=== PATIENT | female | born 1985 | race Caucasian/White ===

== ENCOUNTER 2018-12-07 14:44 | Emergency (ER) | payer OTHER ==
[~2018-12-07] VITALS: Ht 175.2 cm; Wt 86.2 kg
[~2018-12-07 14:44] MED LIST: AUGMENTIN 875875 MG PO; BACTRIM DS 8001 TA1 PO; BENADRYL25 MG PO; BUSPIRONE10 MG PO; CIPROFLOXACIN500 MG PO; CLARITIN10 MG PO; DARVOCET N 1001 TAB PO; HYDROXYZINE PAM50 MG PO; LEXAPRO20 MG PO; MOTRIN800 MG PO; MUCINEX DM 60 M1 TER PO; NKHM; PROVENTIL0.09 MG/A1 INH; PYRIDIUM100 MG PO; SEPTRA DS 800 M1 TAB PO; SEROQUEL25 MG PO; VISTARIL25 MG PO; ZANTAC 150150 MG PO; ZYRTEC10 M2 PO
[2018-12-07] MEDS ORDERED: ZITHROMAX250 MG PO (16:26)
== END 2018-12-07 16:49 | disposition home or self-care (01) ==
LOC: ED 14:44
DX: J02.8 Acute pharyngitis due to other specified organisms (principal); R59.0 Localized enlarged lymph nodes; Z88.5 Allergy status to narcotic agent; Z88.1 Allergy status to other antibiotic agents; Z79.899 Other long term (current) drug therapy; Z90.49 Acquired absence of other specified parts of digestive tract

== ENCOUNTER 2019-01-18 21:35 | Emergency (ER) | payer OTHER ==
[~2019-01-18] VITALS: Ht 175.2 cm; Wt 81.6 kg
--- NOTE | ~2019-01-18 | EKG ---
[place], [place] ELECTROCARDIOGRAM REPORT NAME: GEE MUÑOZ UNIT #: [id number] ROOM: DOCTOR: EPIPHANY DRAFT REPORT BIRTHDATE: [birth year] [facility] Test Date: 2019-01-18 Test Time: 22:21:50 Pat Name: GEE MUÑOZ Department: ER Room: 12 Gender: F Marriage Counselor: Taylor Ford : 1985 Requested By: PHILLIP LYLES PA-C Order Number: [id number] Reading MD: Ceasar Bass MD Measurements Intervals [place] Rate: 81 P: 58 LA: 142 QRS: 25 QRSD: 96 T: 35 QT: 362 QTc: 421 Interpretive Statements Sinus rhythm Probable left atrial enlargement RSR' in V1 or V2, right VCD or RVH Electronically Signed On 01-22-2019 8:39:20 PDT by Ceasar Bass MD CM:EKGRPT:ELECTROCARDIOGRAM REPORT [id number] PHILLIP LYLES PA-C EPIPHANY DRAFT REPORT PHILLIP LYLES PA-C
[~2019-01-18 21:35] MED LIST changes: +ZITHROMAX250 MG PO
[2019-01-18 22:24] LABS: URINE AMPHETAMINES < 1000 (1000ng/ml); URINE BARBITURATES < 200 (200ng/ml); URINE BENZODIAZEPINES < 200 (200ng/ml); URINE CANNABINOIDS (THC) < 50 (50ng/ml); URINE COCAINE < 300 (300ng/ml); URINE METHADONE < 300 (300ng/ml); URINE OPIATES > 300 (300ng/ml)
[2019-01-18 22:25] LABS: URINE PHENCYCLIDINE < 25 (25ng/ml)
[2019-01-18 22:37] LABS: BASO # 0.1 10*3/uL (0.0-0.1); EOS # 0.1 10*3/uL (0.0-0.4); EOS % 1.3 % (1.0-4.0); HEMATOCRIT 41.4 % (37.0-47.0); HEMOGLOBIN 13.4 g/dl (12.0-16.0); LYMPH # 2.3 10*3/uL (1.3-4.4); LYMPH % 29.3 % (27.0-41.0); MEAN CELL VOLUME 85.4 fl (81.0-99.0); MEAN CORPUSCULAR HGB 27.6 pg (27.0-31.0); MEAN CORPUSCULAR HGB CONC 32.4 g/dl (33.0-37.0); MONO # 0.6 10*3/uL (0.1-1.0); MONO % 7.9 % (3.0-9.0); NEUT # 4.8 10*3/uL (2.3-7.9); NEUT % 60.4 % (47.0-73.0); PLATELET COUNT AUTOMATED 262 10*3/uL (130-400); RED BLOOD COUNT 4.85 10*6/uL (4.10-5.10); RED CELL DISTRI WIDTH 12.8 % (0-14.5); WHITE BLOOD COUNT 7.9 10*3/uL (4.8-10.8)
[2019-01-18 22:54] LABS: ALBUMIN 3.8 gm/dl (3.1-4.5); ALKALINE PHOSPHATASE 89 U/L (45-117); BUN 11 mg/dl (7-24); CHLORIDE 103 mmol/L (98-107); CREATININE 0.72 mg/dL (0.55-1.02); POTASSIUM 3.4 mmol/L (3.5-5.1); SGOT/AST 86 IU/L (3-35); SGPT/ALT 163 U/L (12-78); SODIUM 136 mmol/L (136-145); TOTAL PROTEIN 7.9 gm/dL (6.4-8.2); TROPONIN I < 0.015 ng/ml (<0.045)
[2019-01-18] MEDS ORDERED: VISTARIL25 MG PO (23:21)
[2019-01-18] MEDS ORDERED: ZOFRAN4 MG PO (23:21)
== END 2019-01-18 23:42 | disposition home or self-care (01) ==
LOC: ED 21:35
PROVIDERS: Physician Assistant
DX: R42 Dizziness and giddiness (principal); R25.1 Tremor, unspecified; F11.10 Opioid abuse, uncomplicated; Z79.899 Other long term (current) drug therapy; Z88.1 Allergy status to other antibiotic agents; Z88.6 Allergy status to analgesic agent

== ENCOUNTER 2019-03-19 17:00 | Emergency (ER) | payer OTHER ==
[~2019-03-19] VITALS: Ht 175.2 cm; Wt 77.1 kg
[~2019-03-19 17:00] MED LIST changes: +ZOFRAN4 MG PO
== END 2019-03-19 17:57 | disposition home or self-care (01) ==
LOC: ED 17:00
DX: F11.10 Opioid abuse, uncomplicated (principal); Z88.5 Allergy status to narcotic agent; Z88.1 Allergy status to other antibiotic agents; Z79.899 Other long term (current) drug therapy; Z79.2 Long term (current) use of antibiotics

== ENCOUNTER 2022-02-17 22:15 | Emergency (ER) | payer MEDICAID ==
[~2022-02-17] VITALS: Ht 175.2 cm; Wt 77.1 kg
[2022-02-18] MEDS ORDERED: PREDNISONE20 M1 PO (00:13)
[2022-02-18] MEDS ORDERED: ORPHENADRINE C100 M1 PO (00:13)
[2022-02-18] MEDS ORDERED: TRAMADOL HCL50 MG PO (00:13)
== END 2022-02-18 00:27 | disposition home or self-care (01) ==
LOC: ED 22:15
DX: S14.9XXA Injury of unspecified nerves of neck, initial encounter (principal); M62.838 Other muscle spasm; Z88.5 Allergy status to narcotic agent; Z88.1 Allergy status to other antibiotic agents; Z98.890 Other specified postprocedural states; Z90.49 Acquired absence of other specified parts of digestive tract; X50.1XXA Overexertion from prolonged static or awkward postures, initial encounter; Y93.89 Activity, other specified; Y92.89 Other specified places as the place of occurrence of the external cause; Y99.8 Other external cause status

== ENCOUNTER → 2022-06-16 | Emergency (ER) | payer MEDICAID ==
[~2022-06-16] VITALS: Ht 175.2 cm; Wt 84.8 kg
[~2022-06-16] MED LIST changes: +ONDANSETRON4 MG SL; +ORPHENADRINE C100 M1 PO; +PREDNISONE20 M1 PO; +SUBOXONE 8 MG-1 EACH SL; +TRAMADOL HCL50 MG PO
[2022-06-16 22:09] LABS: BASO % 0.6 % (0.0-1.0); EOS % 0.3 % (1.0-4.0); HEMATOCRIT 38.4 % (37.0-47.0); LYMPH # 1.7 10*3/uL (1.3-4.4); LYMPH % 25.1 % (27.0-41.0); MEAN CORPUSCULAR HGB CONC 32.6 g/dl (33.0-37.0); MEAN PLATELET VOLUME 10.8 fl (9.6-12.3); MONO # 0.3 10*3/uL (0.1-1.0); MONO % 4.4 % (3.0-9.0); NEUT # 4.7 10*3/uL (2.3-7.9); NEUT % 69.3 % (47.0-73.0); PLATELET COUNT AUTOMATED 246 10*3/uL (130-400); RED CELL DISTRI WIDTH 13.4 % (0-14.5); WHITE BLOOD COUNT 6.8 10*3/uL (4.8-10.8)
[2022-06-16 22:35] LABS: ALKALINE PHOSPHATASE 115 U/L (46-116); BUN 11 mg/dl (9-23); CHLORIDE 104 mmol/L (98-107); CREATININE 0.54 mg/dL (0.55-1.02); SGPT/ALT 112 U/L (10-49); TOTAL PROTEIN 7.5 gm/dL (6.0-8.0)
== END ==
LOC: ED 21:27
PROVIDERS: Internal Medicine
DX: R11.2 Nausea with vomiting, unspecified (principal); R79.89 Other specified abnormal findings of blood chemistry; Z88.5 Allergy status to narcotic agent; Z88.1 Allergy status to other antibiotic agents; Z90.49 Acquired absence of other specified parts of digestive tract

== ENCOUNTER 2022-07-06 15:32 | Emergency (ER) | payer MEDICAID ==
[~2022-07-06] VITALS: Ht 175.2 cm; Wt 77.1 kg
[2022-07-06 16:49] LABS: BASO % 0.3 % (0.0-1.0); EOS % 0.1 % (1.0-4.0); HEMATOCRIT 43.2 % (37.0-47.0); LYMPH # 0.5 10*3/uL (1.3-4.4); MEAN CELL VOLUME 81.4 fl (81.0-99.0); MEAN CORPUSCULAR HGB 25.4 pg (27.0-31.0); MEAN CORPUSCULAR HGB CONC 31.3 g/dl (33.0-37.0); MEAN PLATELET VOLUME 10.6 fl (9.6-12.3); MONO # 0.4 10*3/uL (0.1-1.0); NEUT # 7.7 10*3/uL (2.3-7.9); NEUT % 88.3 % (47.0-73.0); PLATELET COUNT AUTOMATED 204 10*3/uL (130-400); RED BLOOD COUNT 5.31 10*6/uL (4.10-5.10); WHITE BLOOD COUNT 8.7 10*3/uL (4.8-10.8)
[2022-07-06 17:04] LABS: ALKALINE PHOSPHATASE 91 U/L (46-116); BUN 5 mg/dl (9-23); CHLORIDE 100 mmol/L (98-107); SGPT/ALT 95 U/L (10-49); TOTAL PROTEIN 7.3 gm/dL (6.0-8.0)
[2022-07-06 19:22] LABS: BILIRUBIN Negative (Negative); BLOOD Negative (Negative); CLARITY Clear (Clear); COLOR Yellow (Yellow); GLUCOSE Negative (Negative); KETONE 2+ (Negative); LEUKO ESTERASE Negative (Negative); NITRITE Negative (Negative); UROBILINOGEN 0.2 E.U./dl (0.0-1.0)
[2022-07-06 19:29] LABS: URINE AMPHETAMINES Positive (1000ng/ml); URINE BARBITURATES Negative (200ng/ml); URINE BENZODIAZEPINES Negative (200ng/ml); URINE CANNABINOIDS (THC) Negative (50ng/ml); URINE COCAINE Negative (300ng/ml); URINE METHADONE Negative (300ng/ml); URINE OPIATES Negative (300ng/ml); URINE PHENCYCLIDINE Negative (25ng/ml)
[2022-07-06 19:37] LABS: MUCOUS 1+
== END 2022-07-06 21:57 | disposition home or self-care (01) ==
LOC: ED 15:32
PROVIDERS: Nurse Practitioner
DX: U07.1 COVID-19 (principal); Z88.5 Allergy status to narcotic agent; Z88.1 Allergy status to other antibiotic agents; Z88.8 Allergy status to other drugs, medicaments and biological substances; Z98.890 Other specified postprocedural states; Z90.49 Acquired absence of other specified parts of digestive tract; F19.90 Other psychoactive substance use, unspecified, uncomplicated

== ENCOUNTER 2022-07-14 16:14 | Emergency (ER) | payer MEDICAID ==
[~2022-07-14] VITALS: Ht 175.2 cm; Wt 77.1 kg
[2022-07-14] MEDS ORDERED: PREDNISONE20 M1 PO (17:41)
[2022-07-14] MEDS ORDERED: ZITHROMAX250 MG PO (17:41)
== END 2022-07-14 17:59 | disposition home or self-care (01) ==
LOC: ED 16:14
DX: U07.1 COVID-19 (principal); Z88.5 Allergy status to narcotic agent; Z88.1 Allergy status to other antibiotic agents; Z88.8 Allergy status to other drugs, medicaments and biological substances; Z90.49 Acquired absence of other specified parts of digestive tract; Z98.890 Other specified postprocedural states

== ENCOUNTER 2022-08-13 11:57 | Emergency (ER) | payer MEDICAID ==
[~2022-08-13] VITALS: Ht 175.2 cm; Wt 77.1 kg
[2022-08-13 14:42] LABS: BASO # 0.1 10*3/uL (0.0-0.1); BASO % 0.9 % (0.0-1.0); EOS # 0.1 10*3/uL (0.0-0.4); EOS % 1.4 % (1.0-4.0); LYMPH # 2.6 10*3/uL (1.3-4.4); LYMPH % 32.4 % (27.0-41.0); MEAN CELL VOLUME 81.8 fl (81.0-99.0); MEAN CORPUSCULAR HGB CONC 31.8 g/dl (33.0-37.0); MEAN PLATELET VOLUME 10.1 fl (9.6-12.3); MONO # 0.5 10*3/uL (0.1-1.0); MONO % 6.6 % (3.0-9.0); NEUT # 4.6 10*3/uL (2.3-7.9); NEUT % 58.3 % (47.0-73.0); PLATELET COUNT AUTOMATED 317 10*3/uL (130-400); RED BLOOD COUNT 4.89 10*6/uL (4.10-5.10); RED CELL DISTRI WIDTH 14.8 % (0-14.5); WHITE BLOOD COUNT 7.9 10*3/uL (4.8-10.8)
[2022-08-13 15:00] LABS: ALKALINE PHOSPHATASE 91 U/L (46-116); BUN 13 mg/dl (9-23); CHLORIDE 104 mmol/L (98-107); LIPASE 38 U/L (12-53); POTASSIUM 3.7 mmol/L (3.4-5.1); SGPT/ALT 116 U/L (10-49); TOTAL PROTEIN 7.3 gm/dL (6.0-8.0)
== END 2022-08-13 15:29 | disposition home or self-care (01) ==
LOC: ED 11:57
PROVIDERS: Nurse Practitioner Family
DX: B19.20 Unspecified viral hepatitis C without hepatic coma (principal); R74.01 Elevation of levels of liver transaminase levels; Z88.1 Allergy status to other antibiotic agents; Z88.8 Allergy status to other drugs, medicaments and biological substances; Z79.899 Other long term (current) drug therapy; Z98.890 Other specified postprocedural states; Z90.49 Acquired absence of other specified parts of digestive tract

== ENCOUNTER 2023-01-05 00:02 | Emergency (ER) | payer MEDICAID ==
[~2023-01-05] VITALS: Ht 175.2 cm; Wt 77.1 kg
[2023-01-05 00:50] LABS: BASO # 0.1 10*3/uL (0.0-0.1); EOS # 0.1 10*3/uL (0.0-0.4); HEMATOCRIT 38.2 % (37.0-47.0); LYMPH % 44.4 % (27.0-41.0); MEAN CELL VOLUME 80.4 fl (81.0-99.0); MEAN CORPUSCULAR HGB 25.5 pg (27.0-31.0); MEAN CORPUSCULAR HGB CONC 31.7 g/dl (33.0-37.0); MEAN PLATELET VOLUME 10.4 fl (9.6-12.3); MONO # 0.6 10*3/uL (0.1-1.0); MONO % 8.3 % (3.0-9.0); NEUT # 3.1 10*3/uL (2.3-7.9); PLATELET COUNT AUTOMATED 318 10*3/uL (130-400); RED BLOOD COUNT 4.75 10*6/uL (4.10-5.10); RED CELL DISTRI WIDTH 14.9 % (0-14.5); WHITE BLOOD COUNT 6.8 10*3/uL (4.8-10.8)
[2023-01-05 01:02] LABS: ACT PARTIAL THROMBO TIME 25.7 SECONDS (20.0-32.1); INTERNATIONAL NORM RATIO 0.9 (2.0-3.5)
[2023-01-05 01:19] LABS: ALKALINE PHOSPHATASE 79 U/L (46-116); BUN 9 mg/dl (9-23); CHLORIDE 106 mmol/L (98-107); LIPASE 40 U/L (12-53); POTASSIUM 3.4 mmol/L (3.4-5.1); SGPT/ALT 125 U/L (10-49); TOTAL PROTEIN 7.1 gm/dL (6.0-8.0)
== END 2023-01-05 02:16 | disposition home or self-care (01) ==
LOC: ED 00:02
PROVIDERS: Internal Medicine
DX: O46.91 Antepartum hemorrhage, unspecified, first trimester (principal); F32.A Depression, unspecified; F41.9 Anxiety disorder, unspecified; Z86.16 Personal history of COVID-19; Z3A.01 Less than 8 weeks gestation of pregnancy; Z88.5 Allergy status to narcotic agent; Z88.1 Allergy status to other antibiotic agents; Z88.8 Allergy status to other drugs, medicaments and biological substances; Z90.49 Acquired absence of other specified parts of digestive tract; Z98.890 Other specified postprocedural states

== ENCOUNTER 2023-01-05 16:35 | Emergency (ER) | payer MEDICAID ==
[~2023-01-05] VITALS: Wt 77.1 kg
[2023-01-05 17:59] LABS: BASO # 0.1 10*3/uL (0.0-0.1); EOS # 0.1 10*3/uL (0.0-0.4); HEMATOCRIT 38.3 % (37.0-47.0); LYMPH # 2.5 10*3/uL (1.3-4.4); LYMPH % 36.3 % (27.0-41.0); MEAN CELL VOLUME 79.6 fl (81.0-99.0); MEAN CORPUSCULAR HGB CONC 32.6 g/dl (33.0-37.0); MEAN PLATELET VOLUME 10.5 fl (9.6-12.3); MONO # 0.5 10*3/uL (0.1-1.0); MONO % 7.4 % (3.0-9.0); NEUT # 3.7 10*3/uL (2.3-7.9); PLATELET COUNT AUTOMATED 339 10*3/uL (130-400); RED BLOOD COUNT 4.81 10*6/uL (4.10-5.10); RED CELL DISTRI WIDTH 14.9 % (0-14.5); WHITE BLOOD COUNT 6.9 10*3/uL (4.8-10.8)
[2023-01-05 18:31] LABS: ALKALINE PHOSPHATASE 78 U/L (46-116); BUN 10 mg/dl (9-23); CHLORIDE 106 mmol/L (98-107); SGPT/ALT 129 U/L (10-49); TOTAL PROTEIN 7.2 gm/dL (6.0-8.0)
== END 2023-01-05 20:10 | disposition home or self-care (01) ==
LOC: ED 16:35
PROVIDERS: Physician Assistant Medical
DX: O00.91 Unspecified ectopic pregnancy with intrauterine pregnancy (principal); F32.A Depression, unspecified; F41.9 Anxiety disorder, unspecified; Z86.16 Personal history of COVID-19; Z88.5 Allergy status to narcotic agent; Z88.1 Allergy status to other antibiotic agents; Z88.8 Allergy status to other drugs, medicaments and biological substances; Z90.49 Acquired absence of other specified parts of digestive tract; Z98.890 Other specified postprocedural states

== ENCOUNTER 2023-01-26 15:54 | Emergency (ER) | payer MEDICAID ==
[~2023-01-26] VITALS: Wt 77.1 kg
[2023-01-26 17:49] LABS: BASO # 0.1 10*3/uL (0.0-0.1); BASO % 0.7 % (0.0-1.0); EOS # 0.1 10*3/uL (0.0-0.4); EOS % 1.4 % (1.0-4.0); HEMATOCRIT 30.2 % (37.0-47.0); LYMPH # 2.6 10*3/uL (1.3-4.4); MEAN CELL VOLUME 81.8 fl (81.0-99.0); MEAN CORPUSCULAR HGB CONC 31.8 g/dl (33.0-37.0); MEAN PLATELET VOLUME 9.8 fl (9.6-12.3); MONO # 0.5 10*3/uL (0.1-1.0); MONO % 6.6 % (3.0-9.0); NEUT # 3.9 10*3/uL (2.3-7.9); NEUT % 54.6 % (47.0-73.0); PLATELET COUNT AUTOMATED 269 10*3/uL (130-400); RED BLOOD COUNT 3.69 10*6/uL (4.10-5.10); RED CELL DISTRI WIDTH 14.8 % (0-14.5); WHITE BLOOD COUNT 7.1 10*3/uL (4.8-10.8)
[2023-01-26 18:29] LABS: ALKALINE PHOSPHATASE 74 U/L (46-116); BUN 11 mg/dl (9-23); CHLORIDE 109 mmol/L (98-107); POTASSIUM 3.7 mmol/L (3.4-5.1); SGPT/ALT 102 U/L (10-49); TOTAL PROTEIN 5.9 gm/dL (6.0-8.0)
== END 2023-01-26 21:53 | disposition left against medical advice (07) ==
LOC: ED 15:54
PROVIDERS: Emergency Medicine
DX: N93.9 Abnormal uterine and vaginal bleeding, unspecified (principal); R10.30 Lower abdominal pain, unspecified; F32.A Depression, unspecified; F41.9 Anxiety disorder, unspecified; Z88.5 Allergy status to narcotic agent; Z88.1 Allergy status to other antibiotic agents; Z88.8 Allergy status to other drugs, medicaments and biological substances; Z90.49 Acquired absence of other specified parts of digestive tract; Z98.890 Other specified postprocedural states

== ENCOUNTER 2023-01-26 20:42 | Emergency (ER) | payer MEDICAID | END 2023-01-26 23:15 | disposition left against medical advice (07) | LOC: ED 20:42 | DX: O03.6 Delayed or excessive hemorrhage following complete or unspecified spontaneous abortion (principal); Z88.5 Allergy status to narcotic agent; Z88.1 Allergy status to other antibiotic agents; Z88.8 Allergy status to other drugs, medicaments and biological substances; Z53.21 Procedure and treatment not carried out due to patient leaving prior to being seen by health care provider ==

== ENCOUNTER 2023-10-20 03:36 | Inpatient (IN) | payer MEDICAID ==
[~2023-10-20] VITALS: Ht 175.2 cm; Wt 79.1 kg
[2023-10-20 03:53] VITALS: BP 136/69
[2023-10-20 05:21] LABS: ALKALINE PHOSPHATASE 98 U/L (46-116); BUN 13 mg/dl (9-23); CHLORIDE 106 mmol/L (98-107); POTASSIUM 3.7 mmol/L (3.4-5.1); SGPT/ALT 77 U/L (5-49); TOTAL PROTEIN 6.1 gm/dL (6.0-8.0)
[2023-10-20 06:09] LABS: BASO # 0.1 10*3/uL (0.0-0.1); BASO % 1.3 % (0.0-1.0); EOS # 0.2 10*3/uL (0.0-0.4); EOS % 2.5 % (1.0-4.0); HEMATOCRIT 29.8 % (37.0-47.0); LYMPH % 42.9 % (27.0-41.0); MEAN CELL VOLUME 68.8 fl (81.0-99.0); MEAN CORPUSCULAR HGB 18.2 pg (27.0-31.0); MEAN CORPUSCULAR HGB CONC 26.5 g/dl (33.0-37.0); MEAN PLATELET VOLUME 10.5 fl (9.6-12.3); MONO # 0.6 10*3/uL (0.1-1.0); MONO % 8.2 % (3.0-9.0); NEUT # 3.1 10*3/uL (2.3-7.9); NEUT % 44.3 % (47.0-73.0); PLATELET COUNT AUTOMATED 394 10*3/uL (130-400); RED BLOOD COUNT 4.33 10*6/uL (4.10-5.10); RED CELL DISTRI WIDTH 17.3 % (0-14.5); WHITE BLOOD COUNT 7.1 10*3/uL (4.8-10.8)
[2023-10-20] MEDS ORDERED: FUROSEMIDE 20 MG/2 ML VIAL IV ONE (07:00)
[2023-10-20 07:23] VITALS: BP 129/77
[2023-10-20 08:32] LABS: BILIRUBIN Negative (Negative); BLOOD Negative (Negative); CLARITY Cloudy (Clear); COLOR Yellow (Yellow); GLUCOSE Negative (Negative); KETONE Negative (Negative); LEUKO ESTERASE Negative (Negative); NITRITE Positive (Negative); SPECIFIC GRAVITY 1.025 (1.001-1.030)
[2023-10-20 08:40] LABS: URINE AMPHETAMINES Positive (1000ng/ml); URINE BARBITURATES Negative (200ng/ml); URINE BENZODIAZEPINES Negative (200ng/ml); URINE CANNABINOIDS (THC) Negative (50ng/ml); URINE COCAINE Negative (300ng/ml); URINE METHADONE Negative (300ng/ml); URINE OPIATES Negative (300ng/ml); URINE PHENCYCLIDINE Negative (25ng/ml)
[2023-10-20 08:50] LABS: BACTERIA 4+
[2023-10-20 08:51] LABS: WBC 0-2 wbc/hpf (0-5)
[2023-10-20] MEDS ORDERED: BISACODYL 5 MG TAB PO PRN (08:55)
[2023-10-20] MEDS ORDERED: Ondansetron Hydrochloride 4 MG/2 ML VIAL IV PRN (08:55)
[2023-10-20] MEDS ORDERED: ACETAMINOPHEN 325 MG TAB PO PRN (08:55)
[2023-10-20 09:10] VITALS: BP 142/71
[2023-10-20] MEDS ORDERED: Enoxaparin Sodium 40 MG/0.4 ML SYR SC SCH (10:00)
[2023-10-20] MEDS ORDERED: FUROSEMIDE 40 MG/4 ML VIAL IV SCH (10:00)
[2023-10-20] MEDS ORDERED: SODIUM CHLORIDE 0.9% 100 ML BAG IV ONE (10:20)
[2023-10-20] MEDS ORDERED: IOHEXOL 350 MG/ML 100 ML VIAL IV ONE (10:20)
[2023-10-20] MEDS ORDERED: POTASSIUM CHLORIDE 20 MEQ TAB PO SCH (10:35)
[2023-10-20 12:00] VITALS: BP 144/79
[2023-10-20 16:36] VITALS: BP 144/89
[2023-10-20 20:00] VITALS: BP 140/90
[2023-10-20] MEDS ORDERED: Ceftriaxone Sodium 1 GM in SYRINGE INFUSION 10 ML IV SCH (20:00)
[2023-10-21] VITALS: BP 135/69
[2023-10-21 06:57] LABS: HEMATOCRIT 34.9 % (37.0-47.0); MEAN CELL VOLUME 66.9 fl (81.0-99.0); MEAN CORPUSCULAR HGB 18.2 pg (27.0-31.0); MEAN CORPUSCULAR HGB CONC 27.2 g/dl (33.0-37.0); MEAN PLATELET VOLUME 9.9 fl (9.6-12.3); PLATELET COUNT AUTOMATED 431 10*3/uL (130-400); RED BLOOD COUNT 5.22 10*6/uL (4.10-5.10); RED CELL DISTRI WIDTH 17.8 % (0-14.5); RETICULOCYTE % 1.83 % (0.50-2.50); WHITE BLOOD COUNT 8.8 10*3/uL (4.8-10.8)
[2023-10-21 07:46] LABS: BUN 14 mg/dl (9-23); CHLORIDE 102 mmol/L (98-107); CHOLESTEROL 141 mg/dL (<200); FREE T4 0.97 ng/dl (0.89-1.76); LDL CHOLESTEROL 51 mg/dL (9-159); POTASSIUM 3.8 mmol/L (3.4-5.1); TRIGLYCERIDES 57 mg/dl (<150)
[2023-10-21 08:00] VITALS: BP 128/66
[2023-10-21 08:05] LABS: PLATELET SUFFICIENCY HIGH (NORMAL); TOTAL CELLS COUNTED 100 #CELLS
[2023-10-21 08:07] LABS: MICROCYTOSIS SLIGHT; OVALOCYTES FEW; POLYCHROMASIA SLIGHT
[2023-10-21 08:08] LABS: MANUAL DIFF REFLEX YES
[2023-10-21 08:37] LABS: VITAMIN D, 25-HYDROXY 22.3 ng/mL (30-100)
[2023-10-21] MEDS ORDERED: Ciprofloxacin Hydrochloride 500 MG TAB PO SCH (10:00)
[2023-10-21 12:00] VITALS: BP 140/81
[2023-10-21 16:00] VITALS: BP 132/74
[2023-10-21 20:00] VITALS: BP 132/65
[2023-10-22 00:09] VITALS: BP 144/85
[2023-10-22 08:00] VITALS: BP 161/73
[2023-10-22] MEDS ORDERED: POTASSIUM CHLO20 ME4 PO (08:49)
[2023-10-22] MEDS ORDERED: AMLODIPINE BESYL5 MG PO (08:49)
[2023-10-22] MEDS ORDERED: IRON325 M3 PO (08:51)
[2023-10-22] MEDS ORDERED: LASIX20 MG PO (08:52)
[2023-10-22] MEDS ORDERED: OMNICEF300 MG PO (08:56)
[2023-10-22] MEDS ORDERED: FUROSEMIDE 20 MG TAB PO SCH (10:00)
[2023-10-22] MEDS ORDERED: NA FERRIC GLUC CMPL/SUCROSE 62.5 MG/5 ML VIAL IV SCH (10:00)
[2023-10-22] MEDS ORDERED: amLODIPine besylate 5 MG TAB PO SCH (10:00)
== END 2023-10-22 13:25 | disposition home or self-care (01) | DRG 194 ==
LOC: ED 03:36 → 4E 07:01 → EDHOLD 07:01 → 4E 08:18
PROVIDERS: Emergency Medicine; Registered Nurse; ADMIT Internal Medicine; ATTEND Internal Medicine
DX: I11.0 Hypertensive heart disease with heart failure (principal); E43 Unspecified severe protein-calorie malnutrition; I27.20 Pulmonary hypertension, unspecified; B19.20 Unspecified viral hepatitis C without hepatic coma; I10 Essential (primary) hypertension; I50.31 Acute diastolic (congestive) heart failure; R74.01 Elevation of levels of liver transaminase levels; F15.10 Other stimulant abuse, uncomplicated; N39.0 Urinary tract infection, site not specified; D50.9 Iron deficiency anemia, unspecified; F11.90 Opioid use, unspecified, uncomplicated; Z86.19 Personal history of other infectious and parasitic diseases; Z88.6 Allergy status to analgesic agent; Z98.891 History of uterine scar from previous surgery; Z88.1 Allergy status to other antibiotic agents; Z88.8 Allergy status to other drugs, medicaments and biological substances; Z68.28 Body mass index [BMI] 28.0-28.9, adult

== ENCOUNTER 2023-10-25 02:54 | Emergency (ER) | payer MEDICAID ==
[~2023-10-25] VITALS: Ht 175.2 cm; Wt 86.2 kg
[~2023-10-25 02:54] MED LIST changes: +AMLODIPINE BESYL5 MG PO; +IRON325 M3 PO; +LASIX20 MG PO; +OMNICEF300 MG PO; +POTASSIUM CHLO20 ME4 PO
[2023-10-25 03:48] LABS: BASO # 0.1 10*3/uL (0.0-0.1); EOS # 0.2 10*3/uL (0.0-0.4); EOS % 2.1 % (1.0-4.0); HEMATOCRIT 30.4 % (37.0-47.0); LYMPH # 3.7 10*3/uL (1.3-4.4); LYMPH % 36.1 % (27.0-41.0); MEAN CELL VOLUME 67.7 fl (81.0-99.0); MEAN CORPUSCULAR HGB 18.3 pg (27.0-31.0); MONO # 0.7 10*3/uL (0.1-1.0); NEUT # 5.5 10*3/uL (2.3-7.9); PLATELET COUNT AUTOMATED 343 10*3/uL (130-400); RED BLOOD COUNT 4.49 10*6/uL (4.10-5.10); RED CELL DISTRI WIDTH 18.3 % (0-14.5); WHITE BLOOD COUNT 10.4 10*3/uL (4.8-10.8)
== END 2023-10-25 08:28 | disposition home or self-care (01) ==
LOC: ED 02:54
PROVIDERS: Emergency Medicine
DX: T78.49XA Other allergy, initial encounter (principal); M79.601 Pain in right arm; R22.31 Localized swelling, mass and lump, right upper limb; E43 Unspecified severe protein-calorie malnutrition; I50.9 Heart failure, unspecified; Z88.5 Allergy status to narcotic agent; Z88.1 Allergy status to other antibiotic agents; Z79.899 Other long term (current) drug therapy; Z79.2 Long term (current) use of antibiotics; Z98.890 Other specified postprocedural states; Z90.49 Acquired absence of other specified parts of digestive tract; X58.XXXA Exposure to other specified factors, initial encounter

== ENCOUNTER 2024-02-22 02:34 | Emergency (ER) | payer MEDICAID ==
[~2024-02-22] VITALS: Ht 175.2 cm; Wt 79.4 kg
[2024-02-22] MEDS ORDERED: BUMETANIDE 1 MG TAB PO ONE (02:50)
[2024-02-22] MEDS ORDERED: METHOCARBAMOL 500 MG TAB PO ONE (02:50)
[2024-02-22] MEDS ORDERED: Ketorolac Tromethamine 60 MG/2 ML VIAL IM ONE (02:50)
[2024-02-22] MEDS ORDERED: METHOCARBAMOL500 M1 PO (02:52)
[2024-02-22] MEDS ORDERED: NAPROXEN250 MG PO (02:52)
== END 2024-02-22 03:14 | disposition home or self-care (01) ==
LOC: ED 02:34
DX: S29.012A Strain of muscle and tendon of back wall of thorax, initial encounter (principal); R60.0 Localized edema; Z88.5 Allergy status to narcotic agent; Z88.1 Allergy status to other antibiotic agents; Z79.899 Other long term (current) drug therapy; Z79.2 Long term (current) use of antibiotics; Z98.890 Other specified postprocedural states; Z90.49 Acquired absence of other specified parts of digestive tract; X58.XXXA Exposure to other specified factors, initial encounter; Y93.89 Activity, other specified; Y92.89 Other specified places as the place of occurrence of the external cause; Y99.8 Other external cause status

== ENCOUNTER 2024-06-22 17:37 | Emergency (ER) | payer MEDICAID ==
[~2024-06-22] VITALS: Ht 175.2 cm; Wt 86.2 kg
[~2024-06-22 17:37] MED LIST changes: +METHOCARBAMOL500 M1 PO; +NAPROXEN250 MG PO
[2024-06-22] MEDS ORDERED: ACETAMINOPHEN 325 MG TAB PO ONE (18:20)
[2024-06-22 18:49] LABS: BASO # 0.1 10*3/uL (0.0-0.1); BASO % 0.5 % (0.0-1.0); EOS % 0.2 % (1.0-4.0); HEMATOCRIT 39.3 % (37.0-47.0); MEAN CELL VOLUME 74.6 fl (81.0-99.0); MEAN CORPUSCULAR HGB 22.4 pg (27.0-31.0); MEAN PLATELET VOLUME 10.4 fl (9.6-12.3); MONO # 0.8 10*3/uL (0.1-1.0); MONO % 6.4 % (3.0-9.0); NEUT # 9.9 10*3/uL (2.3-7.9); NEUT % 79.4 % (47.0-73.0); PLATELET COUNT AUTOMATED 256 10*3/uL (130-400); RED BLOOD COUNT 5.27 10*6/uL (4.10-5.10); WHITE BLOOD COUNT 12.4 10*3/uL (4.8-10.8)
[2024-06-22 18:51] LABS: BILIRUBIN 1+ (Negative); BLOOD 3+ (Negative); CLARITY Turbid (Clear); COLOR Orange (Yellow); GLUCOSE Negative (Negative); KETONE Negative (Negative); LEUKO ESTERASE 3+ (Negative); NITRITE Positive (Negative); PH 5.5 (4.5-8.0)
[2024-06-22 19:01] LABS: BACTERIA 2+; WBC TNTC wbc/hpf (0-5)
[2024-06-22] MEDS ORDERED: Ceftriaxone Sodium 1 GM/10 ML SYR IV ONE (19:05)
[2024-06-22] MEDS ORDERED: SODIUM CHLORIDE 0.9% 1,000 ML IV ONE (19:05)
[2024-06-22 19:07] LABS: BUN 8 mg/dl (9-23); CHLORIDE 103 mmol/L (98-107); POTASSIUM 3.6 mmol/L (3.4-5.1)
[2024-06-22] MEDS ORDERED: CIPRO500 MG PO (21:07)
== END 2024-06-22 21:32 | disposition home or self-care (01) ==
LOC: ED 17:37
PROVIDERS: Physician Assistant Medical
DX: A41.9 Sepsis, unspecified organism (principal); N12 Tubulo-interstitial nephritis, not specified as acute or chronic; I50.9 Heart failure, unspecified; F32.A Depression, unspecified; F41.9 Anxiety disorder, unspecified; Z88.5 Allergy status to narcotic agent; Z88.1 Allergy status to other antibiotic agents; Z88.8 Allergy status to other drugs, medicaments and biological substances; Z98.890 Other specified postprocedural states; Z90.49 Acquired absence of other specified parts of digestive tract

== ENCOUNTER 2024-07-12 18:13 | Emergency (ER) | payer MEDICAID ==
[~2024-07-12] VITALS: Wt 86.2 kg
[~2024-07-12 18:13] MED LIST changes: +CIPRO500 MG PO
[2024-07-12] MEDS ORDERED: Gentamicin Sulfate 80 MG/2 ML VIAL IM ONE (19:20)
[2024-07-12] MEDS ORDERED: AZITHROMYCIN 250 MG TAB PO ONE (19:20)
[2024-07-12 19:53] LABS: BILIRUBIN Negative (Negative); BLOOD Negative (Negative); CLARITY Cloudy (Clear); COLOR Yellow (Yellow); GLUCOSE Negative (Negative); KETONE Negative (Negative); LEUKO ESTERASE Negative (Negative); NITRITE Negative (Negative); SPECIFIC GRAVITY 1.025 (1.001-1.030)
[2024-07-12 19:58] LABS: BACTERIA TRACE; EPITHELIAL CELLS 16-20; WBC 0-2 wbc/hpf (0-5)
[2024-07-12] MEDS ORDERED: METRONIDAZOLE500 M1 PO (20:06)
== END 2024-07-12 20:23 | disposition home or self-care (01) ==
LOC: ED 18:13
PROVIDERS: Physician Assistant Medical
DX: N89.8 Other specified noninflammatory disorders of vagina (principal); I50.9 Heart failure, unspecified; F32.A Depression, unspecified; F41.9 Anxiety disorder, unspecified; Z88.5 Allergy status to narcotic agent; Z88.1 Allergy status to other antibiotic agents; Z88.8 Allergy status to other drugs, medicaments and biological substances; Z98.890 Other specified postprocedural states; Z90.49 Acquired absence of other specified parts of digestive tract

== ENCOUNTER 2025-02-01 03:19 | Emergency (ER) | payer MEDICAID ==
[~2025-02-01] VITALS: Ht 175.2 cm; Wt 95.3 kg
[~2025-02-01 03:19] MED LIST changes: +METRONIDAZOLE500 M1 PO
[2025-02-01 03:47] LABS: BILIRUBIN Negative (Negative); BLOOD 2+ (Negative); CLARITY Turbid (Clear); COLOR Yellow (Yellow); KETONE Trace (Negative); LEUKO ESTERASE 3+ (Negative); NITRITE Positive (Negative); PH 6.5 (4.5-8.0); SPECIFIC GRAVITY 1.020 (1.001-1.030); UROBILINOGEN 1.0 E.U./dl (0.0-1.0)
[2025-02-01 04:34] LABS: BACTERIA 4+; RBC 31-40 rbc/hpf (0-2); WBC TNTC wbc/hpf (0-5)
[2025-02-01] MEDS ORDERED: Nitrofurantoin Monohydrate/N 100 MG CAP PO ONE (04:40)
== END 2025-02-01 04:55 | disposition home or self-care (01) ==
LOC: ED 03:19
PROVIDERS: Internal Medicine
DX: O23.42 Unspecified infection of urinary tract in pregnancy, second trimester (principal); N39.0 Urinary tract infection, site not specified; Z98.890 Other specified postprocedural states; Z88.5 Allergy status to narcotic agent; Z88.1 Allergy status to other antibiotic agents; Z88.8 Allergy status to other drugs, medicaments and biological substances; Z3A.24 24 weeks gestation of pregnancy

== ENCOUNTER 2025-04-09 03:40 | Emergency (ER) | payer MEDICAID ==
[~2025-04-09] VITALS: Ht 175.2 cm; Wt 108.9 kg
[2025-04-09 04:20] LABS: BILIRUBIN Negative (Negative); BLOOD Negative (Negative); CLARITY Cloudy (Clear); COLOR Yellow (Yellow); KETONE Negative (Negative); LEUKO ESTERASE Negative (Negative); NITRITE Negative (Negative); PH 5.0 (4.5-8.0); SPECIFIC GRAVITY 1.025 (1.001-1.030); UROBILINOGEN 1.0 E.U./dl (0.0-1.0)
[2025-04-09 04:36] LABS: BACTERIA TRACE; EPITHELIAL CELLS 31-40; WBC 0-2 wbc/hpf (0-5)
== END 2025-04-09 04:58 | disposition home or self-care (01) ==
LOC: ED 03:40
PROVIDERS: Internal Medicine
DX: O26.893 Other specified pregnancy related conditions, third trimester (principal); R32 Unspecified urinary incontinence; Z88.5 Allergy status to narcotic agent; Z88.1 Allergy status to other antibiotic agents; Z98.890 Other specified postprocedural states; Z90.49 Acquired absence of other specified parts of digestive tract; Z3A.34 34 weeks gestation of pregnancy